=== PATIENT | male | born 1990 | race Caucasian/White ===

== ENCOUNTER 2016-07-03 12:24 | Emergency (ER) | payer SELFPAY ==
--- NOTE | 2016-07-03 14:15 | NUR ---
PATIENT LEFT WITHOUT BEING SEEN BY DR. LANDIS. NO FURTHER CARE PROVIDED FOR PATIENT.
== END 2016-07-03 14:15 | disposition left against medical advice (07) ==
LOC: EEVIPCON 12:24 → MED 12:24
DX: M79.606 Pain in leg, unspecified (principal); Z53.21 Procedure and treatment not carried out due to patient leaving prior to being seen by health care provider

== ENCOUNTER 2016-07-04 06:59 | Emergency (ER) | payer MEDICAID ==
[~2016-07-04] VITALS: Ht 188 cm; Wt 89.4 kg
[2016-07-04 07:20] VITALS: BP 157/99
--- NOTE | 2016-07-04 07:26 | NUR ---
Patient to bed 04.
--- NOTE | 2016-07-04 07:30 | NUR ---
PT PRESENTS TO ER W/C/O RIGHT ANKLE PAIN. PT STATES HE ROLLED HIS ANKLE 1 YR AGO AND HAS HAD INTERMITTENT BOUTS OF PAIN SINCE THEN, BUT NOW FEELS TIGHTNESS FROM HIS KNEE DOWN TO HIS RIGHT ANKLE; DENIES N/V/D; SKIN IS PINK/WARM/DRY; AAOX4 WITH EVEN AND STEADY GAIT; LUNGS CLEAR BL; HR EVEN AND REGULAR; PT DENIES ANY FEVER, CP, SOB, OR COUGH AT THIS TIME; PATIENT STATES RIGHT ANKLE PAIN OF 8/10 AT THIS TIME; VSS; PATIENT POSITIONED FOR COMFORT; HOB ELEVATED; BEDRAILS UP X2; BED DOWN. ER MD MADE AWARE OF PT STATUS.
--- NOTE | 2016-07-04 07:33 | NUR ---
Dr. Hayes evaluating patient at bedside.
--- NOTE | 2016-07-04 07:36 | NUR ---
Patient going to XRAY via wheelchair per tech.
--- NOTE | 2016-07-04 07:50 | NUR ---
Patient back from XRAY via wheelchair per tech.
[2016-07-04 08:23] VITALS: BP 140/84
--- NOTE | 2016-07-04 08:23 | NUR ---
Patient discharged with v/s stable. Written and verbal after care instructions given and explained. Patient verbalized understanding. Ambulatory with steady gait. All questions addressed prior to discharge. Advised to follow up with PMD.
== END 2016-07-04 08:23 | disposition home or self-care (01) ==
LOC: MED 06:59
DX: S93.401A Sprain of unspecified ligament of right ankle, initial encounter (principal); R03.0 Elevated blood-pressure reading, without diagnosis of hypertension; Z88.0 Allergy status to penicillin; X58.XXXA Exposure to other specified factors, initial encounter; Y93.89 Activity, other specified; Y92.89 Other specified places as the place of occurrence of the external cause; Y99.8 Other external cause status
CPT/HCPCS: 73590; 73610; 99284